=== PATIENT | female | born 1970 | race Hispanic/Latino ===

== ENCOUNTER 2018-08-06 21:42 | Inpatient (IN) | payer BC ==
[2018-08-06] MEDS ORDERED: Sodium Chloride 0.9% 1,000 ML IV STA (22:32)
--- NOTE | 2018-08-06 23:19 | ED PDOC ---
HPI: Abdomen Time Seen by Provider: 08/06/18 22:24 Chief Complaint (Nursing): Abdominal Pain Chief Complaint (Provider): Abdominal Pain History Per: Patient History/Exam Limitations: no limitations Onset/Duration Of Symptoms: Days (x 2) Current Symptoms Are (Timing): Still Present Location Of Pain/Discomfort: Diffuse, Epigastric Quality Of Discomfort: "Pain" Associated Symptoms: Back Pain Exacerbating Factors: denies: Food Additional Complaint(s): 47 year old female presents to the ED with abdominal pain localized to epigastric area radiating like a band to her back since yesterday. She also developed generalized fatigue, body aches and a fever of 101.7. Patient reports pain became severe yesterday, prompting her to visit [facility] where she had blood work done and was prescribed antacids. Today at 4pm the pain returned. Patient states that she had similar episodes of pain before, but never this severe. It is not associated with food. Denies diarrhea, nausea, vomiting, constipation and urinary symptoms. PMD: none provided Past Medical History Reviewed: Historical Data, Nursing Documentation, Vital Signs Vital Signs: Last Vital Signs Temp 98.3 F 08/06/18 22:18 Pulse 88 08/06/18 22:18 Resp 16 08/06/18 22:18 BP 131/75 08/06/18 22:18 Pulse Ox 100 08/06/18 22:18 - Medical History PMH: No Chronic Diseases - Surgical History Surgical History: Tonsillectomy, - Family History Family History: States: Other Other Family History: gallstones - Social History Alcohol: Social (2-3 drinks/week) - Home Medications Home Medications: Ambulatory Orders Medication Instructions Recorded RX: No Known Home Med 08/07/18 - Allergies Allergies/Adverse Reactions: Allergies Allergy/AdvReac Type Severity Reaction Status Date / Time No Known Allergies Allergy Verified 08/06/18 22:18 Review of Systems ROS Statement: Except As Marked, All Systems Reviewed And Found Negative Constitutional: Positive for: Fever, Other (bodyaches and fatigue) Gastrointestinal: Positive for: Abdominal Pain (localized to epigastric area). Negative for: Nausea, Vomiting, Diarrhea, Constipation Genitourinary Female: Negative for: Dysuria, Frequency, Incontinence, Hematuria Musculoskeletal: Positive for: Back Pain (radiating from abdominal area) Physical Exam - Reviewed Nursing Documentation Reviewed: Yes Vital Signs Reviewed: Yes - Physical Exam Appears: Positive for: No Acute Distress Head Exam: Positive for: ATRAUMATIC, NORMAL INSPECTION, NORMOCEPHALIC Skin: Positive for: Warm, Dry Eye Exam: Positive for: EOMI, PERRL ENT: Negative for: Pharyngeal Erythema, Tonsillar Exudate Neck: Positive for: Painless ROM, Supple Cardiovascular/Chest: Positive for: Regular Rate, Rhythm. Negative for: Murmur Respiratory: Positive for: Normal Breath Sounds. Negative for: Respiratory Distress Gastrointestinal/Abdominal: Positive for: Tenderness (epigastric tenderness to palpation). Negative for: Mass, Guarding, Rebound, Other (Storey's and McBurney's point tenderness) Back: Positive for: R CVA Tenderness. Negative for: L CVA Tenderness Extremity: Positive for: Normal ROM. Negative for: Deformity Lymphatic: Negative for: Adenopathy Neurologic/Psych: Positive for: Alert. Negative for: Motor/Sensory Deficits - Laboratory Results Result Diagrams: 08/07/18 11:38 08/07/18 11:38 - ECG O2 Sat by Pulse Oximetry: 100 (RA) Pulse Ox Interpretation: Normal Medical Decision Making Medical Decision Makin:31 Impression: abdominal pain Differential diagnoses include but are not limited to: gallbladder disease, pancreatitis, gastritis, influenza Initial Plan: --CMP --CBC --Lipase --Prothrombin time --PTT --NS IV --Urine dip --Urine preg --Influenza AB --Toradol 15 mg IM --Gallbladder US 23:43 IV saline lock in right antecube placed under sterile conditions due to nurse's inability to obtain labs or place line. 00:00 --Patient signed out to Dr. Hurley pending US results, labs and reevaluation. Scribe Attestation: Documented by Paola Kaur acting as a scribe for Lis Eddy MD Provider Scribe Attestation: All medical record entries made by the Scribe were at my direction and personally dictated by me. I have reviewed the chart and agree that the record accurately reflects my personal performance of the history, physical exam, medical decision making, and the department course for this patient. I have also personally directed, reviewed, and agree with the discharge instructions and disposition. Disposition - Clinical Impression Clinical Impression: Abdominal pain, Cholecystitis - Patient ED Disposition Is Patient to be Admitted: Transfer of Care - Disposition Disposition: Transfer of Care Disposition Time: 00:00 Condition: STABLE Patient Signed Over To: Samara Hurley
[2018-08-07] LABS: BASO # 0.1 K/uL (0.0-0.2); BASO % 0.7 % (0.0-2.0); EOS # 0.1 K/uL (0.0-0.7); EOS % 1.6 % (0.0-4.0); HEMOGLOBIN 15.2 g/dL (12.0-16.0); LYMPH # 0.9 K/uL (1.0-4.3); LYMPH % 10.5 % (20.0-40.0); MEAN CORPUSCULAR HEMOGLOBIN 32.1 pg (27.0-31.0); MEAN CORPUSCULAR HGB CONC 34.5 g/dL (33.0-37.0); MEAN PLATELET VOLUME 8.7 fl (7.2-11.7); MONO # 0.5 K/uL (0.0-0.8); MONO % 5.8 % (0.0-10.0); NEUT # 6.6 K/uL (1.8-7.0); NEUT % 81.4 % (50.0-75.0); RBC 4.73 Mil/uL (3.80-5.20); RED CELL DISTRIBUTION WIDTH 13.2 % (11.5-14.5); WHITE BLOOD COUNT 8.2 K/uL (4.8-10.8)
[2018-08-07 00:03] LABS: INR 1.1; PROTHROMBIN TIME 12.2 Seconds (9.8-13.1)
[2018-08-07 00:05] LABS: PARTIAL THROMBOPLASTIN TIME 33.7 Seconds (25.6-37.1)
[2018-08-07 00:07] LABS: ALB/GLOB RATIO 1.3 (1.0-2.1); ALBUMIN 4.4 g/dL (3.5-5.0); ALT/SGPT 321 U/L (9-52); AST/SGOT 204 U/L (14-36); BLOOD UREA NITROGEN 12 mg/dl (7-17); CALCIUM 9.1 mg/dL (8.4-10.2); GFR NON-AFRICAN AMERICAN > 60
[2018-08-07 00:14] LABS: LIPASE 3467 U/L (23-300)
--- NOTE | 2018-08-07 00:39 | ED PDOC ---
- Laboratory Results Result Diagrams: 08/06/18 23:50 08/06/18 23:50 Lab Results: PT 12.2 Seconds (9.8-13.1) 08/06/18 23:50 INR 1.1 08/06/18 23:50 APTT 33.7 Seconds (25.6-37.1) 08/06/18 23:50 Total Bilirubin 5.2 mg/dl (0.2-1.3) H 08/06/18 23:50 AST 204 U/L (14-36) H 08/06/18 23:50 ALT 321 U/L (9-52) H 08/06/18 23:50 Alkaline Phosphatase 105 U/L (38-126) 08/06/18 23:50 Total Protein 7.8 G/DL (6.3-8.2) 08/06/18 23:50 Albumin 4.4 g/dL (3.5-5.0) 08/06/18 23:50 Globulin 3.4 gm/dL (2.2-3.9) 08/06/18 23:50 Albumin/Globulin Ratio 1.3 (1.0-2.1) 08/06/18 23:50 Lipase 3467 U/L (23-300) H 08/06/18 23:50 - ECG O2 Sat by Pulse Oximetry: 100 (RA) Pulse Ox Interpretation: Normal Medical Decision Making Medical Decision Makin:00 --Patient signed out to this provider by Dr. Eddy pending US, labs and reevaluation. 01:00 Gallbladder US Findings: Liver measures 15.9 cm. Coarse hepatic echotexture. Diffuse thickening of the gallbladder measuring 9.5 mm. Multiple gallstones are noted. Non dilated common bile duct measuring 5.1 mm. Unremarkable pancreas as visualized. Unremarkable right kidney measuring 11.1x5.1x5.7 cm. Trace amount of pericholecystic free fluid. Unremarkable IVC. Unremarkable line enters the aorta measuring 1.6 cm. Impression: Coarse hepatic echotexture, probably chronic parenchymal liver disease. Diffuse thickening of the underdistended bladder, probably chronic, possibly secondary to parenchymal liver disease and minimal pericholecystic free fluid. Cholelithiasis. 01:20 Ct ordered for further workup 02:[address] FINDINGS: 4.4 cm right ovarian cyst. Uncomplicated clonic diverticulosis. The visualized lung bases are unremarkable. Normal unenhanced liver. Cholelithiasis and diffusely thickened gallbladder. Nondilated extrahepatic biliary system. Mild pericholecystic free fluid is noted. Normal unenhanced spleen. Normal pancreas. Normal bilateral adrenal glands. Normal size of the right kidney. There is no right renal mass. There are no right renal calculi. There is no right hydronephrosis. Normal visualized right ureter. Normal size of the left kidney. There is no left renal mass. There are no left renal calculi. There is no left hydronephrosis. Normal visualized left ureter. Normal visualized stomach. Normal small intestine. Normal colon. The appendix is visualized and appears normal. There is no demonstrated peritoneal fluid. Normal abdominal aorta. Normal inferior vena cava. Normal retroperitoneum. Normal urinary bladder. There is no pelvic mass lesion or lymphadenopathy. There is no pelvic fluid. Unremarkable intrauterine device. Normal abdominal wall. Normal osseous structures. IMPRESSION: Cholelithiasis. Mild changes of acute cholecystitis without perforation or abscess formation. Surgical consultation is recommended. Right ovarian cyst. Unremarkable intrauterine device. 02:40 --Patient is aware of results. Since she does not have a PMD, patient will be admitted to medical services with GI and surgery consults. --Dr. Valenzuela accepted patient. residential appraiser paged. --Dayron issa. 02:49 --Discussed case with surgical assistant certified who will evaluate patient. Scribe Attestation: Documented by Paola Kaur acting as a scribe for Samara Hurley MD Provider Scribe Attestation: All medical record entries made by the Scribe were at my direction and personally dictated by me. I have reviewed the chart and agree that the record accurately reflects my personal performance of the history, physical exam, medical decision making, and the department course for this patient. I have also personally directed, reviewed, and agree with the discharge instructions and disposition. Disposition Counseled Patient/Family Regarding: Studies Performed, Diagnosis - Clinical Impression Clinical Impression: Abdominal pain, Cholecystitis - POA Present On Arrival: None - Disposition Disposition: Admitted as In-Patient Disposition Time: 02:40 Condition: STABLE
[2018-08-07] MEDS ORDERED: Piperacillin/Tazobact 4.5 GM in Sodium Chloride 0.9% 100 ML IVPB STA (02:43)
[2018-08-07] MEDS ORDERED: Sodium Chloride 0.9% 1,000 ML IV STA (02:43)
[2018-08-07] MEDS ORDERED: HYDROmorphone 0.5 mg/0.5 ml ISec IVP PRN (05:07)
[2018-08-07] MEDS ORDERED: Lactated Ringer's 1,000 ML IV SCH ×2 (05:15)
--- NOTE | 2018-08-07 07:02 | CP.PCM.CON ---
History of Present Illness - History of Present Illness History of Present Illness: Surgery Consult: Dr. Torres Pt is a 47F with no significant PMHx who presented to [facility] with complaints of epigastric pain that started 2 days ago. Pt states she has had similar pain for the past 2 months but it usually goes away. However, last night the pain was persistent and severe in nature so she came to the ER. Pt denies associated symptoms and states pain is spontaneous with no correlation to food. Pt denies nausea/vomiting, fevers/chills, chest pain or SOB. In the ER, pt had a CT abdomen/pelvis which showed gallbladder with stones & pericholecystic fluid. Surgery consulted to evaluate. Currently, pt is resting comfortably, states her abdominal pain has resolved and denies any more complaints. PMHx: denies PSHx: , tonsillectomy SocialHx: denies smoking/EtOH/drugs NKDA Review of Systems - Review of Systems All systems: reviewed and no additional remarkable complaints except (as per HPI) Past Patient History - Past Medical History & Family History Past Medical History?: Yes - Past Social History Smoking Status: Never Smoked - CARDIAC Hx Cardiac Disorders: No - PULMONARY Hx Respiratory Disorders: No - NEUROLOGICAL Hx Neurological Disorder: No - HEENT Hx HEENT Problems: No - RENAL Hx Chronic Kidney Disease: No - ENDOCRINE/METABOLIC Hx Endocrine Disorders: No - HEMATOLOGICAL/ONCOLOGICAL Hx Blood Disorders: No - INTEGUMENTARY Hx Dermatological Problems: No - MUSCULOSKELETAL/RHEUMATOLOGICAL Hx Musculoskeletal Disorders: No Hx Falls: No - GASTROINTESTINAL Hx Gastrointestinal Disorders: No - GENITOURINARY/GYNECOLOGICAL Hx Genitourinary Disorders: No - PSYCHIATRIC Hx Psychophysiologic Disorder: No Hx Substance Use: No - SURGICAL HISTORY Hx Surgeries: Yes Hx Section: Yes Hx Tonsillectomy: Yes Other/Comment: thyroidectomy - ANESTHESIA Hx Anesthesia: Yes Hx Anesthesia Reactions: No Hx Malignant Hyperthermia: No Meds Allergies/Adverse Reactions: Allergies Allergy/AdvReac Type Severity Reaction Status Date / Time No Known Allergies Allergy Verified 08/06/18 22:18 - Medications Medications: Current Medications Hydromorphone HCl (Dilaudid) 0.5 mg IVP Q6H PRN PRN Reason: Pain, severe (8-10) Lactated Ringer's (Lactated Ringer's) 1,000 mls @ 150 mls/hr IV .Q6H40M [facility] Stop: 08/09/18 05:16 Last Admin: 08/07/18 06:41 Dose: Not Given Ondansetron HCl (Zofran Inj) 4 mg IVP Q4 PRN PRN Reason: Nausea/Vomiting Physical Exam - Constitutional Appears: Well, No Acute Distress - Head Exam Head Exam: ATRAUMATIC, NORMOCEPHALIC - Eye Exam Eye Exam: Normal appearance - ENT Exam ENT Exam: Mucous Membranes Moist - Respiratory Exam Respiratory Exam: NORMAL BREATHING PATTERN - Cardiovascular Exam Cardiovascular Exam: RRR - GI/Abdominal Exam GI & Abdominal Exam: Soft. absent: Distended, Guarding, Rebound, Tenderness - Extremities Exam Extremities exam: Negative for: pedal edema - Neurological Exam Neurological exam: Alert, Oriented x3 - Skin Skin Exam: Dry, Intact, Warm Results - Vital Signs Recent Vital Signs: Last Vital Signs Temp 97.6 F 08/07/18 04:00 Pulse 71 08/07/18 04:21 Resp 18 08/07/18 04:21 BP 124/76 08/07/18 04:00 Pulse Ox 100 08/07/18 04:30 - Labs Result Diagrams: 08/06/18 23:50 08/06/18 23:50 Labs: Laboratory Results - last 24 hr 08/06/18 08/06/18 08/06/18 22:50 23:50 23:50 WBC 8.2 RBC 4.73 Hgb 15.2 Hct 44.0 MCV 93.0 MCH 32.1 H MCHC 34.5 RDW 13.2 Plt Count 171 MPV 8.7 Neut % (Auto) 81.4 H Lymph % (Auto) 10.5 L Mccreary % (Auto) 5.8 Eos % (Auto) 1.6 Baso % (Auto) 0.7 Neut # (Auto) 6.6 Lymph # (Auto) 0.9 L Mccreary # (Auto) 0.5 Eos # (Auto) 0.1 Baso # (Auto) 0.1 PT INR APTT Sodium 138 Potassium 3.9 Chloride 101 Carbon Dioxide 28 Anion Gap 13 BUN 12 Creatinine 0.7 Est GFR ( Amer) > 60 Est GFR (Non-Af Amer) > 60 Random Glucose 103 Calcium 9.1 Total Bilirubin 5.2 H AST 204 H ALT 321 H Alkaline Phosphatase 105 Total Protein 7.8 Albumin 4.4 Globulin 3.4 Albumin/Globulin Ratio 1.3 Lipase 3467 H Influenza Typ A,B (EIA) Negative for flu a/b 08/06/18 23:50 WBC RBC Hgb Hct MCV MCH MCHC RDW Plt Count MPV Neut % (Auto) Lymph % (Auto) Mccreary % (Auto) Eos % (Auto) Baso % (Auto) Neut # (Auto) Lymph # (Auto) Mccreary # (Auto) Eos # (Auto) Baso # (Auto) PT 12.2 INR 1.1 APTT 33.7 Sodium Potassium Chloride Carbon Dioxide Anion Gap BUN Creatinine Est GFR ( Amer) Est GFR (Non-Af Amer) Random Glucose Calcium Total Bilirubin AST ALT Alkaline Phosphatase Total Protein Albumin Globulin Albumin/Globulin Ratio Lipase Influenza Typ A,B (EIA) - Imaging and Cardiology CT scan - abdomen Status: Image reviewed by me, Report reviewed by me Assessment & Plan - Assessment and Plan (Free Text) Assessment: 47F with abdominal pain; r/o cholecystitis & choledocholithiasis Plan: - Keep NPO with IVF - f/u AM labs; trend liver enzymes - f/u MRCP and GI eval - will discuss cholecystectomy with pt pending MRCP & GI workup - d/w Dr. Brian Cannon
[2018-08-07 08:39] VITALS: PULSE 70
--- NOTE | 2018-08-07 10:53 | US ---
Date of service: 08/06/2018 HISTORY: Upper abdominal pain. COMPARISON: None. TECHNIQUE: Sonographic evaluation of the right upper quadrant of the abdomen. FINDINGS: LIVER: Measures 15.9 cm in length. Normal echogenicity of the liver parenchyma. No mass. No intrahepatic bile duct dilatation. GALLBLADDER: Cholelithiasis. Multiple small gallstones identified. Gallbladder thickening identified maximum diameter 9.5 mm. No elicited sonographic Storey sign. Trace pericholecystic fluid. COMMON BILE DUCT: Measures 5.0 mm. No stones. No dilatation. PANCREAS: Unremarkable as visualized. No mass. No ductal dilatation. RIGHT KIDNEY: Measures 5.1 x 11.1 cm in length. Normal echogenicity. No calculus, mass, or hydronephrosis. AORTA: No aneurysmal dilatation. IVC: Unremarkable. OTHER FINDINGS: None . IMPRESSION: Cholelithiasis, presumptive evidence for acute cholecystitis. Concordant findings (preliminary report) provided by [employer].
[2018-08-07 11:42] LABS: HEMOGLOBIN 14.6 g/dL (12.0-16.0); MEAN CELL VOLUME 95.6 fl (81.0-99.0); MEAN CORPUSCULAR HGB CONC 33.4 g/dL (33.0-37.0); RBC 4.58 Mil/uL (3.80-5.20); WHITE BLOOD COUNT 6.8 K/uL (4.8-10.8)
[2018-08-07 12:23] LABS: ALB/GLOB RATIO 1.2 (1.0-2.1); ALBUMIN 3.9 g/dL (3.5-5.0); ALT/SGPT 250 U/L (9-52); AST/SGOT 122 U/L (14-36); BLOOD UREA NITROGEN 13 mg/dl (7-17); CALCIUM 8.5 mg/dL (8.4-10.2); GFR NON-AFRICAN AMERICAN > 60
--- NOTE | 2018-08-07 13:04 | CT ---
Date of service: 08/07/2018 PROCEDURE: CT Abdomen and Pelvis without intravenous contrast HISTORY: abd pain COMPARISON: August 06, 2018. Abdominal ultrasound. TECHNIQUE: Unenhanced. Neither IV nor oral contrast administered Radiation dose: Total exam DLP = 912.92 mGy-cm. This CT exam was performed using one or more of the following dose reduction techniques: Automated exposure control, adjustment of the mA and/or kV according to patient size, and/or use of iterative reconstruction technique. FINDINGS: LOWER THORAX: Unremarkable. LIVER: Unremarkable. No gross lesion or ductal dilatation. GALLBLADDER AND BILE DUCTS: Cholelithiasis. Thickened gallbladder wall, pericholecystic fluid. This confirms findings on recent ultrasound. PANCREAS: Unremarkable. No gross lesion or ductal dilatation. SPLEEN: Unremarkable. ADRENALS: Unremarkable. No mass. KIDNEYS AND URETERS: Unremarkable. No hydronephrosis. No solid mass. Incidental finding(s): Cyst lower pole left kidney 2.3 x 2.54 cm. VASCULATURE: Unremarkable. No aortic aneurysm. No atherosclerotic calcification or mural plaque present. BOWEL: Unremarkable. No obstruction. No gross mural thickening. APPENDIX: Unremarkable. Normal appendix. PERITONEUM: Unremarkable. No free fluid. No free air. LYMPH NODES: Unremarkable. No enlarged lymph nodes. BLADDER: Unremarkable. REPRODUCTIVE: Uterine enlargement. Pedunculated fibroid projecting off the superior aspect the uterus measures 6.5 x 7 cm. Cystic structure likely emanating from the right adnexa 3.9 x 4.2 cm. IUD identified. BONES: No acute fracture. OTHER FINDINGS: None. IMPRESSION: Cholelithiasis/manifestations of acute cholecystitis. Enlarged uterus containing pedunculated fibroid. Right adnexal cyst. Concordant results (preliminary interpretation) provided by [employer]. Procedure Completed: 01:44 Preliminary Report: Dictated and Authenticated: 02:23 Final Interpretation: P.m.. August 07, 2018
--- NOTE | 2018-08-07 15:14 | CP.PCM.CON ---
History of Present Illness - History of Present Illness History of Present Illness: 47 yo female admitted with epigastric abdominal pain and elevated LFTs. Has been having on and off pain for past 2 months. This episode lasted longer and she came to the ER.Currently the pain has improved. Review of Systems - Constitutional Constitutional: absent: Chills - EENT Eyes: absent: Blurred Vision Ears: absent: Ear Pain - Cardiovascular Cardiovascular: absent: Chest Pain - Respiratory Respiratory: absent: Dyspnea - Gastrointestinal Gastrointestinal: As Per HPI - Genitourinary Genitourinary: absent: Change in Urinary Stream Past Patient History - Past Medical History & Family History Past Medical History?: Yes - Past Social History Smoking Status: Never Smoked - CARDIAC Hx Cardiac Disorders: No - PULMONARY Hx Respiratory Disorders: No - NEUROLOGICAL Hx Neurological Disorder: No - HEENT Hx HEENT Problems: No - RENAL Hx Chronic Kidney Disease: No - ENDOCRINE/METABOLIC Hx Endocrine Disorders: No - HEMATOLOGICAL/ONCOLOGICAL Hx Blood Disorders: No - INTEGUMENTARY Hx Dermatological Problems: No - MUSCULOSKELETAL/RHEUMATOLOGICAL Hx Musculoskeletal Disorders: No Hx Falls: No - GASTROINTESTINAL Hx Gastrointestinal Disorders: No - GENITOURINARY/GYNECOLOGICAL Hx Genitourinary Disorders: No - PSYCHIATRIC Hx Psychophysiologic Disorder: No Hx Substance Use: No - SURGICAL HISTORY Hx Surgeries: Yes Hx Section: Yes Hx Tonsillectomy: Yes Other/Comment: thyroidectomy - ANESTHESIA Hx Anesthesia: Yes Hx Anesthesia Reactions: No Hx Malignant Hyperthermia: No Meds Allergies/Adverse Reactions: Allergies Allergy/AdvReac Type Severity Reaction Status Date / Time No Known Allergies Allergy Verified 08/06/18 22:18 - Medications Medications: Current Medications Hydromorphone HCl (Dilaudid) 0.5 mg IVP Q6H PRN PRN Reason: Pain, severe (8-10) Lactated Ringer's (Lactated Ringer's) 1,000 mls @ 150 mls/hr IV .Q6H40M [facility] Stop: 08/09/18 05:16 Last Admin: 08/07/18 06:41 Dose: Not Given Ondansetron HCl (Zofran Inj) 4 mg IVP Q4 PRN PRN Reason: Nausea/Vomiting Physical Exam - Head Exam Head Exam: ATRAUMATIC - Eye Exam Eye Exam: Normal appearance Pupil Exam: PERRL - ENT Exam ENT Exam: Normal Exam - Neck Exam Neck exam: Positive for: Normal Inspection - Respiratory Exam Respiratory Exam: NORMAL BREATHING PATTERN - Cardiovascular Exam Cardiovascular Exam: +S1, +S2 - GI/Abdominal Exam GI & Abdominal Exam: Soft. absent: Diminished Bowel Sounds, Tenderness Results - Vital Signs Recent Vital Signs: Last Vital Signs Temp 98.6 F 08/07/18 08:39 Pulse 70 08/07/18 08:39 Resp 20 08/07/18 08:39 BP 134/79 08/07/18 08:39 Pulse Ox 97 08/07/18 08:39 - Labs Result Diagrams: 08/07/18 11:38 08/07/18 11:38 Labs: Laboratory Results - last 24 hr 08/06/18 08/06/18 08/06/18 22:50 23:50 23:50 WBC 8.2 RBC 4.73 Hgb 15.2 Hct 44.0 MCV 93.0 MCH 32.1 H MCHC 34.5 RDW 13.2 Plt Count 171 MPV 8.7 Neut % (Auto) 81.4 H Lymph % (Auto) 10.5 L Hernando % (Auto) 5.8 Eos % (Auto) 1.6 Baso % (Auto) 0.7 Neut # (Auto) 6.6 Lymph # (Auto) 0.9 L Hernando # (Auto) 0.5 Eos # (Auto) 0.1 Baso # (Auto) 0.1 PT INR APTT Sodium 138 Potassium 3.9 Chloride 101 Carbon Dioxide 28 Anion Gap 13 BUN 12 Creatinine 0.7 Est GFR ( Amer) > 60 Est GFR (Non-Af Amer) > 60 Random Glucose 103 Calcium 9.1 Phosphorus Magnesium Total Bilirubin 5.2 H AST 204 H ALT 321 H Alkaline Phosphatase 105 Total Protein 7.8 Albumin 4.4 Globulin 3.4 Albumin/Globulin Ratio 1.3 Lipase 3467 H Influenza Typ A,B (EIA) Negative for flu a/b 08/06/18 08/07/18 08/07/18 23:50 11:38 11:38 WBC 6.8 RBC 4.58 Hgb 14.6 Hct 43.8 MCV 95.6 D MCH 32.0 H MCHC 33.4 RDW 13.0 Plt Count 168 MPV Neut % (Auto) Lymph % (Auto) Hernando % (Auto) Eos % (Auto) Baso % (Auto) Neut # (Auto) Lymph # (Auto) Hernando # (Auto) Eos # (Auto) Baso # (Auto) PT 12.2 INR 1.1 APTT 33.7 Sodium 138 Potassium 3.8 Chloride 107 Carbon Dioxide 25 Anion Gap 10 BUN 13 Creatinine 0.7 Est GFR ( Amer) > 60 Est GFR (Non-Af Amer) > 60 Random Glucose 83 Calcium 8.5 Phosphorus 3.9 Magnesium 2.0 Total Bilirubin 2.4 H AST 122 H D ALT 250 H D Alkaline Phosphatase 99 Total Protein 7.0 Albumin 3.9 Globulin 3.1 Albumin/Globulin Ratio 1.2 Lipase Influenza Typ A,B (EIA) - Imaging and Cardiology CT scan - abdomen Status: Report reviewed by me Assessment & Plan (1) Cholecystitis Assessment and Plan: Pericholecystic fluid c/w cholelithiasis. Also has elevated Bili and transaminases. Having MRCP today and report is pending. If CBD stone present then ERCP Status: Acute
--- NOTE | 2018-08-07 15:28 | MRI ---
Date of service: 08/07/2018 PROCEDURE: Magnetic Resonance Cholangiopancreatography HISTORY: COMPARISON: None available. TECHNIQUE: Multiplanar, multisequence MR images of the abdomen were obtained, including heavily T2 weighted MRCP images of the biliary system. Rotating maximum intensity projection images of the biliary system were generated. FINDINGS: MRCP: The common bile duct is of a normal caliber. No evidence of choledocholithiasis. No intrahepatic biliary ductal dilatation. LIVER: Unremarkable. GALLBLADDER: Cholelithiasis. Thickened wall. Mild pericholecystic edema. No lily pericholecystic fluid. Findings are concerning for acute cholecystitis. If clinically warranted, consider evaluation with radionuclide hepatobiliary scan. SPLEEN: Minimal splenomegaly. The spleen measures 13.6 cm in greatest dimension. No focal mass. PANCREAS: Unremarkable. ADRENALS: Unremarkable. KIDNEYS: Unremarkable. AORTA: No aneurysm. ASCITES: None. OTHER FINDINGS: None. IMPRESSION: Cholelithiasis with thickened gallbladder wall. Findings concerning for but not diagnostic of acute cholecystitis. If clinically warranted consider further evaluation with radionuclide hepatobiliary scan. Minimal splenomegaly noted.
[2018-08-07 17:07] VITALS: BP 124/76; RESP 18; TEMP 98.1
--- NOTE | 2018-08-07 21:53 | HP ---
HISTORY OF PRESENT ILLNESS: Ms. Kirby is a 47-year-old female who was admitted via the emergency room because of epigastric pain that started 2 days ago. She indicated that she had a fever before she came to the hospital and was admitted via the emergency room for acute cholecystitis with cholelithiasis. She denies nausea, vomiting, or diarrhea. PAST MEDICAL HISTORY: Unremarkable. FAMILY HISTORY: Noncontributory. SOCIAL HISTORY: She does not smoke or drink and does not use drugs. REVIEW OF SYSTEMS: Essentially unremarkable. PHYSICAL EXAMINATION: GENERAL: The patient is alert and oriented. She appears much more comfortable since admission and indicates she is pain free. VITAL SIGNS: Blood pressure 124/76, pulse of 71, respiratory rate 18. She is febrile. O2 saturation 100% on room air. SKIN: Shows fair turgor. HEENT: Pupils equal and reactive to light and accommodation. JVP flat. Mouth shows fair hygiene. LUNGS: Clear. HEART: Regular. No murmurs or gallops. ABDOMEN: Soft, nontender, no organomegaly appreciated. EXTREMITIES: Show no edema or cyanosis. GENITAL: Deferred. RECTAL: Deferred. LABORATORY DATA: WBC 8.2, hemoglobin 15.2, platelet count 171,000. Sodium 138, potassium 3.9, BUN 12, creatinine 0.7, serum glucose 108. CT scan of abdomen and pelvis, official report pending, but unofficial report is remarkable for stones in the gallbladder with pericholecystic fluid. MRCP is pending. IMPRESSION: Acute cholecystitis. PLAN: MRCP ordered and pending. Possible cholecystectomy depending on MRCP results. Chet Valenzuela MD Job # [id number]
--- NOTE | 2018-08-08 00:23 | CARD ---
APPROVED REPORT Date of service: 08/07/2018 EKG Measurement Heart [id number] <Conclusion> Normal sinus rhythm with sinus arrhythmia Normal ECG NPT
--- NOTE | 2018-08-08 16:40 | CP.PCM.DIS ---
Provider - Provider Date of Admission: 08/07/18 02:40 Attending physician: Chet Valenzuela MD Consults: 08/07/18 02:41 Gastroenterology Consult Stat Comment: Consulting Provider: Cristopher Lopez Consulting Physician: Cristopher Lopez Reason for Consult: cholecystitis, elev bili and lfts 08/07/18 02:43 Surgery [General Surgery Consult] Stat Comment: Consulting Provider: Vanita Torres Consulting Physician: Vanita Torres Reason for Consult: cholecystitis Time Spent in preparation of Discharge (in minutes): 30 Diagnosis - Discharge Diagnosis (1) Pancreatitis Status: Acute (2) Abdominal pain Status: Acute (3) Cholecystitis Status: Acute Hospital Course - Lab Results Lab Results: Most Recent Lab Values WBC 6.8 K/uL (4.8-10.8) 08/07/18 11:38 RBC 4.58 Mil/uL (3.80-5.20) 08/07/18 11:38 Hgb 14.6 g/dL (12.0-16.0) 08/07/18 11:38 Hct 43.8 % (34.0-47.0) 08/07/18 11:38 MCV 95.6 fl (81.0-99.0) D 08/07/18 11:38 MCH 32.0 pg (27.0-31.0) H 08/07/18 11:38 MCHC 33.4 g/dL (33.0-37.0) 08/07/18 11:38 RDW 13.0 % (11.5-14.5) 08/07/18 11:38 Plt Count 168 K/uL (130-400) 08/07/18 11:38 MPV 8.7 fl (7.2-11.7) 08/06/18 23:50 Neut % (Auto) 81.4 % (50.0-75.0) H 08/06/18 23:50 Lymph % (Auto) 10.5 % (20.0-40.0) L 08/06/18 23:50 Mathews % (Auto) 5.8 % (0.0-10.0) 08/06/18 23:50 Eos % (Auto) 1.6 % (0.0-4.0) 08/06/18 23:50 Baso % (Auto) 0.7 % (0.0-2.0) 08/06/18 23:50 Neut # (Auto) 6.6 K/uL (1.8-7.0) 08/06/18 23:50 Lymph # (Auto) 0.9 K/uL (1.0-4.3) L 08/06/18 23:50 Mathews # (Auto) 0.5 K/uL (0.0-0.8) 08/06/18 23:50 Eos # (Auto) 0.1 K/uL (0.0-0.7) 08/06/18 23:50 Baso # (Auto) 0.1 K/uL (0.0-0.2) 08/06/18 23:50 PT 12.2 Seconds (9.8-13.1) 08/06/18 23:50 INR 1.1 08/06/18 23:50 APTT 33.7 Seconds (25.6-37.1) 08/06/18 23:50 Sodium 138 mmol/l (132-148) 08/07/18 11:38 Potassium 3.8 MMOL/L (3.6-5.0) 08/07/18 11:38 Chloride 107 mmol/L (98-107) 08/07/18 11:38 Carbon Dioxide 25 mmol/L (22-30) 08/07/18 11:38 Anion Gap 10 (10-20) 08/07/18 11:38 BUN 13 mg/dl (7-17) 08/07/18 11:38 Creatinine 0.7 mg/dl (0.7-1.2) 08/07/18 11:38 Est GFR ( Amer) > 60 08/07/18 11:38 Est GFR (Non-Af Amer) > 60 08/07/18 11:38 Random Glucose 83 mg/dL (65-105) 08/07/18 11:38 Calcium 8.5 mg/dL (8.4-10.2) 08/07/18 11:38 Phosphorus 3.9 mg/dl (2.5-4.5) 08/07/18 11:38 Magnesium 2.0 MG/DL (1.6-2.3) 08/07/18 11:38 Total Bilirubin 2.4 mg/dl (0.2-1.3) H 08/07/18 11:38 AST 122 U/L (14-36) H D 08/07/18 11:38 ALT 250 U/L (9-52) H D 08/07/18 11:38 Alkaline Phosphatase 99 U/L (38-126) 08/07/18 11:38 Total Protein 7.0 G/DL (6.3-8.2) 08/07/18 11:38 Albumin 3.9 g/dL (3.5-5.0) 08/07/18 11:38 Globulin 3.1 gm/dL (2.2-3.9) 08/07/18 11:38 Albumin/Globulin Ratio 1.2 (1.0-2.1) 08/07/18 11:38 Lipase 3467 U/L (23-300) H 08/06/18 23:50 Influenza Typ A,B (EIA) Negative for flu a/b (NEGATIVE) 08/06/18 22:50 - Hospital Course Hospital Course: ABDOMINAL PAIN RESOLVED NO NAUSEA OR VOMITING [id number] TOLERATED LIQUIDS WELL CLEARED FOR DISCHARGE BY SURGEON WILL FOLLOW UP WITH DR TORRES FOR ELECTIVE CHOLECYSTECTOMY Discharge Exam - Head Exam Head Exam: ATRAUMATIC - Eye Exam Eye Exam: EOMI, Normal appearance, PERRL Pupil Exam: NORMAL ACCOMODATION, PERRL - GI/Abdominal Exam GI & Abdominal Exam: Normal Bowel Sounds - Rectal Exam Rectal Exam: NORMAL INSPECTION - Neurological Exam Neurological exam: Alert, CN II-XII Intact, Normal Gait, Oriented x3, Reflexes Normal - Psychiatric Exam Psychiatric exam: Normal Affect, Normal Mood - Skin Skin Exam: Dry, Intact, Normal Color, Warm Discharge Plan - Follow Up Plan Condition: STABLE Disposition: HOME/ ROUTINE Instructions: Cholecystitis (DC) Additional Instructions: follow up with primary MD 1 week Referrals: Vanita Torres MD [Staff Provider] - Cristopher Lopez MD [Staff Provider] -
[2018-08-08 16:52] VITALS: O2SAT 100
== END 2018-08-07 18:35 | disposition home or self-care (01) | DRG 446 ==
LOC: H.ER 21:42 → H.ERHOLD 08-07 02:40 → H.MEDSURG1 08-07 03:43
PROVIDERS: ADMIT Internal Medicine Pulmonary Disease; ATTEND Internal Medicine Pulmonary Disease
DX: K80.00 Calculus of gallbladder with acute cholecystitis without obstruction (principal); N83.201 Unspecified ovarian cyst, right side; R79.89 Other specified abnormal findings of blood chemistry; Z97.5 Presence of (intrauterine) contraceptive device